=== PATIENT | female | born 1965 | race Caucasian/White ===

== ENCOUNTER 2016-10-08 13:45 | Emergency (ER) | payer MEDICARE, OTHER ==
[2016-10-08 14:00] VITALS: RESP 18
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
--- NOTE | 2016-10-08 15:36 | XR ---
EXAMINATION TYPE: XR ankle complete LT DATE OF EXAM: 10/08/2016 3:30 PM COMPARISON: NONE HISTORY: Pain Three views of the ankle demonstrate the ankle mortise to be intact and symmetric. The joint spaces are preserved. The osseous structures are intact. Soft tissue edema noted. Calcaneal spur noted. IMPRESSION: 1. No definite acute fracture or dislocation, if symptoms persist follow-up study in 7 to 10 days wou ld be suggested.
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
--- NOTE | 2016-10-08 15:39 | XR ---
EXAMINATION TYPE: XR foot complete LT DATE OF EXAM: 10/08/2016 3:30 PM COMPARISON: NONE HISTORY: Pain The osseous structures are intact and the joint spaces are preserved. There is no acute fracture or dislocation. Calcaneal spur noted. IMPRESSION: 1. No acute fracture or dislocation. If symptoms persist, follow-up exam in 7 to 10 days could be ob tained.
[2016-10-08 16:13] VITALS: BP 137/86; PULSE 83; TEMP 97.9
== END 2016-10-08 16:13 | disposition home or self-care (01) ==
LOC: EC 13:45
DX: F07.81 Postconcussional syndrome (principal); S49.92XA Unspecified injury of left shoulder and upper arm, initial encounter; M79.672 Pain in left foot; M54.2 Cervicalgia; V49.59XA Passenger injured in collision with other motor vehicles in traffic accident, initial encounter; I10 Essential (primary) hypertension; M19.90 Unspecified osteoarthritis, unspecified site; F41.9 Anxiety disorder, unspecified; F32.9 Major depressive disorder, single episode, unspecified; F17.200 Nicotine dependence, unspecified, uncomplicated; Z79.82 Long term (current) use of aspirin; Z79.899 Other long term (current) drug therapy
CPT/HCPCS: 70450; 72125; 99284

== ENCOUNTER → 2016-11-11 | Outpatient (CLI) | payer MEDICARE, OTHER ==
--- NOTE | 2016-11-11 15:35 | MR ---
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 TECHNOLOGIST HISTORY AT TIME OF EXAM: Spondylosis with radiculopathy, cervical re COMPARISON: Previous study dated 11/13/2011. TECHNIQUE: Multiplanar, multiecho imaging of the cervical spine was obtained without contrast on a 1 .5 nisha magnet. FINDINGS: Prevertebral soft tissues are normal. Vertebral body height and alignment are maintained. Atlantoaxial relationships are normal. There is a normal craniocervical junction. Cord signal is normal. At C2-C3, no definite abnormality is seen. At C3-C4, there is a tiny central disc displacement mildly deforming the thecal sac without cord cont act. The intervertebral foramina are well maintained. The facet and uncovertebral joints are normal. At C4-C5, there is disc space loss and hypertrophic spondylosis. There is a broad-based disc protrusi on slightly eccentric towards the right deforming the thecal sac with cord contact and mild compressi on. The facet and uncovertebral joints are unremarkable. At C5-C6, there is disc space loss and disc desiccation. There is hypertrophic spondylosis. There is a broad-based disc protrusion deforming the thecal sac with cord contact and mild compression. There is mild to moderate, bilateral intervertebral foraminal narrowing. The facet and uncovertebral joints are unremarkable. At C6-C7, the intervertebral foramina are well maintained. There is a right paracentral disc displace ment mildly deforming the thecal sac without cord contact. The facet and uncovertebral joints are unr emarkable. At C7-T1, no abnormality is seen. IMPRESSION: 1. BROAD-BASED DISC PROTRUSION, C4-5 AND C5-6 DEFORMING THE THECAL SAC WITH CORD CONTACT AND COMPRESS ION. 2. BILATERAL INTERVERTEBRAL FORAMINAL NARROWING, C5-6.
== END | disposition home or self-care (01) ==
LOC: RADMRIMAIN 14:30
PROVIDERS: ATTEND Family Medicine
DX: M99.71 Connective tissue and disc stenosis of intervertebral foramina of cervical region (principal); M50.121 Cervical disc disorder at C4-C5 level with radiculopathy
CPT/HCPCS: 72141

== ENCOUNTER → 2019-05-19 | Outpatient (CLI) | payer MEDICARE, OTHER ==
--- NOTE | 2019-05-19 08:51 | MR ---
EXAMINATION TYPE: MR lumbar spine wo con DATE OF EXAM: 05/19/2019 COMPARISON: 09/06/2014 plain films HISTORY: Spondylopathy, chronic pain, facet joint arthropathy CONTRAST: 0 mL intravenous . TECHNIQUE: Multiplanar, multisequence images of the lumbar spine were acquired. FINDINGS: L5-S1: Mild disc bulge is present with anterior thecal sac contact. Facet hypertrophy with ligamentum flavum laxity has some left posterior lateral thecal sac compression. No spinal canal stenosis. Th ere is moderate right foraminal stenosis due to disc bulge. This may have contact with the exiting ne rve root within the spinal canal. L4-L5: There is central subligamentous disc herniation with mild to moderate anterior thecal sac comp ression. No AP spinal canal stenosis is present. Diffuse disc bulge is present extending into the for amen bilaterally. Posterior lateral thecal sac compression from facet hypertrophy and ligamentum flav um laxity is contributing to some spinal canal narrowing through the L4-5 level. Moderate right seamus inal narrowing is present due to disc bulge. L3-L4: Broad-based disc bulge is present with moderate anterior thecal sac flattening. No AP spinal c anal stenosis present. Some facet hypertrophy with ligamentum flavum laxity has left posterior latera l thecal sac compression. Neural foramen are patent. L2-L3: Minimal disc bulge has anterior thecal sac contact. No spinal canal stenosis. No foraminal s tenosis. L1-L2: No significant disc bulge or disc herniation. No spinal canal stenosis. No foraminal stenosi s. Neural foramen are patent.. T12-L1: There is a left paracentral disc herniation with mild anterior thecal sac compression. No cor d contact is evident. No spinal canal stenosis or neural foraminal stenosis is present. IMPRESSION: 1. Subligamentous disc herniation with mild anterior thecal sac compression left paracentral region T 12-L1. 2. Central subligamentous disc herniation with mild to moderate anterior thecal sac compression L4-5. This is contributing to spinal canal narrowing through the L4-5 level in conjunction with the facet hypertrophy and ligamentum flavum laxity. 3. Right foraminal narrowing due to disc bulging L5-S1, L4-5. 4. Additional mild disc bulging present discussed above with anterior thecal sac compression without stenosis.
== END | disposition home or self-care (01) ==
LOC: RADMRIMAIN 07:46
PROVIDERS: ATTEND Family Medicine
DX: M48.061 Spinal stenosis, lumbar region without neurogenic claudication (principal); M51.26 Other intervertebral disc displacement, lumbar region; G89.4 Chronic pain syndrome
CPT/HCPCS: 72148

== ENCOUNTER 2022-03-05 08:48 | Emergency (ER) | payer MEDICARE ==
[2022-03-05 08:53] VITALS: TEMP 97.7
[2022-03-05] MEDS ORDERED: SODIUM CHLORIDE 0.9% 500 ML 500 ML IV STA (09:19)
[2022-03-05] MEDS ORDERED: MORPHINE SULFATE 4 MG/ML SYRINGE IV STA (09:19)
--- NOTE | 2022-03-05 09:57 | ED ---
General Adult HPI - General Chief complaint: Abdominal Pain Stated complaint: abd pain, diarrhea Time Seen by Provider: 03/05/22 08:57 Source: patient, family, RN notes reviewed, old records reviewed Mode of arrival: ambulatory Limitations: no limitations - History of Present Illness Initial comments: 56-year-old female presenting for evaluation of crampy abdominal pain and diarrhea. Patient believes that she may have some food poisoning. She ate a chicken sandwich yesterday evening and developed symptoms several hours after this. She has a lower bilateral abdominal pain which is worse just prior to episodes of diarrhea. She did note some minimal blood in her stool. There's been no vomiting. She has had nausea. - Related Data Home Medications Medication Instructions Recorded Confirmed Levothyroxine Sodium [Synthroid] 100 mcg PO DAILY 12/20/20 12/20/20 Metoprolol Tartrate [Lopressor] 50 mg PO BID 12/20/20 12/20/20 oxyCODONE HCL/ACETAMINOPHEN 1 tab PO TID PRN 12/20/20 12/20/20 [Percocet 7.5-325 mg] Levothyroxine Sodium [Synthroid] 100 mcg PO DAILY 03/05/22 03/05/22 Metoprolol Tartrate [Lopressor] 50 mg PO BID 03/05/22 03/05/22 Nystatin 100,000Unit/gm Cream 1 applic TOPICAL BID PRN 03/05/22 03/05/22 [Mycostatin Cream] oxyCODONE-APAP 7.5-325MG [Percocet 1 tab PO Q8H 03/05/22 03/05/22 7.5-325 mg] Allergies Allergy/AdvReac Type Severity Reaction Status Date / Time nitrofurantoin Allergy Dyspnea Verified 03/05/22 10:10 [From Macrobid] blueberry AdvReac Unknown Verified 03/05/22 10:10 Milk Containing Products AdvReac Unknown Verified 03/05/22 10:10 Review of Systems ROS Statement: Those systems with pertinent positive or pertinent negative responses have been documented in the HPI. ROS Other: All systems not noted in ROS Statement are negative. Past Medical History Past Medical History: Hypertension, Osteoarthritis (OA) Additional Past Medical History / Comment(s): herniated disc/chronic back pain History of Any Multi-Drug Resistant Organisms: None Reported Past Surgical History: Appendectomy, Section Past Psychological History: Anxiety, Depression Past Alcohol Use History: None Reported Past Drug Use History: None Reported General Exam Limitations: no limitations General appearance: alert, in no apparent distress Head exam: Present: atraumatic, normocephalic Eye exam: Present: normal appearance, PERRL ENT exam: Present: normal exam Neck exam: Present: normal inspection. Absent: tenderness, meningismus Respiratory exam: Present: normal lung sounds bilaterally. Absent: respiratory distress, wheezes Cardiovascular Exam: Present: regular rate, normal rhythm GI/Abdominal exam: Present: soft. Absent: distended, tenderness, guarding, rebound Extremities exam: Present: normal inspection, normal capillary refill. Absent: pedal edema, calf tenderness Neurological exam: Present: alert, oriented X3, CN II-XII intact. Absent: motor sensory deficit Psychiatric exam: Present: normal affect, normal mood Skin exam: Present: warm, dry, intact. Absent: cyanosis, diaphoretic Course Vital Signs 03/05/22 03/05/22 08:49 11:30 Temperature 97.7 F Pulse Rate 84 68 Respiratory 18 16 Rate Blood Pressure 161/91 142/72 O2 Sat by Pulse 99 99 Oximetry - Reevaluation(s) Reevaluation #1: 03/05/22 11:39 Patient reevaluated, feeling better, no further diarrhea. Medical Decision Making - Medical Decision Making 56-year-old female with diarrheal illness with some trace blood. Patient well- appearing stable vitals. She does have a leukocytosis of 19 which is being followed by her primary care physician. She has a stable hemoglobin, normal el ectrolytes. She feels better after symptomatic treatment and is given strict return parameters. Patient agreeable and eager for discharge. - Lab Data Result diagrams: 03/05/22 09:26 03/05/22 09:26 Lab Results 03/05/22 03/05/22 03/05/22 Range/Units 09:26 09:26 09:26 WBC 19.3 H (3.8-10.6) k/uL RBC 5.31 (3.80-5.40) m/uL Hgb 15.2 (11.4-16.0) gm/dL Hct 50.0 H (34.0-46.0) % MCV 94.2 (80.0-100.0) fL MCH 28.7 (25.0-35.0) pg MCHC 30.4 L (31.0-37.0) g/dL RDW 12.6 (11.5-15.5) % Plt Count 341 (150-450) k/uL MPV 7.3 PT 10.0 (9.0-12.0) sec INR 0.9 (<1.2) APTT 25.9 (22.0-30.0) sec Sodium 139 (137-145) mmol/L Potassium 5.1 (3.5-5.1) mmol/L Chloride 107 (98-107) mmol/L Carbon Dioxide 22 (22-30) mmol/L Anion Gap 10 mmol/L BUN 19 H (7-17) mg/dL Creatinine 0.93 (0.52-1.04) mg/dL Est GFR (CKD-EPI)AfAm 80 (>60 ml/min/1.73 sqM) Est GFR (CKD-EPI)NonAf 69 (>60 ml/min/1.73 sqM) Glucose 116 H (74-99) mg/dL Plasma Lactic Acid Ken (0.7-2.0) mmol/L Calcium 9.9 (8.4-10.2) mg/dL Total Bilirubin 0.7 (0.2-1.3) mg/dL AST 30 (14-36) U/L ALT 19 (4-34) U/L Alkaline Phosphatase 69 (38-126) U/L Total Protein 7.8 (6.3-8.2) g/dL Albumin 4.3 (3.5-5.0) g/dL Amylase 60 (30-110) U/L Lipase 86 (23-300) U/L 03/05/22 Range/Units 09:26 WBC (3.8-10.6) k/uL RBC (3.80-5.40) m/uL Hgb (11.4-16.0) gm/dL Hct (34.0-46.0) % MCV (80.0-100.0) fL MCH (25.0-35.0) pg MCHC (31.0-37.0) g/dL RDW (11.5-15.5) % Plt Count (150-450) k/uL MPV PT (9.0-12.0) sec INR (<1.2) APTT (22.0-30.0) sec Sodium (137-145) mmol/L Potassium (3.5-5.1) mmol/L Chloride (98-107) mmol/L Carbon Dioxide (22-30) mmol/L Anion Gap mmol/L BUN (7-17) mg/dL Creatinine (0.52-1.04) mg/dL Est GFR (CKD-EPI)AfAm (>60 ml/min/1.73 sqM) Est GFR (CKD-EPI)NonAf (>60 ml/min/1.73 sqM) Glucose (74-99) mg/dL Plasma Lactic Acid Ken 1.6 (0.7-2.0) mmol/L Calcium (8.4-10.2) mg/dL Total Bilirubin (0.2-1.3) mg/dL AST (14-36) U/L ALT (4-34) U/L Alkaline Phosphatase (38-126) U/L Total Protein (6.3-8.2) g/dL Albumin (3.5-5.0) g/dL Amylase (30-110) U/L Lipase (23-300) U/L Disposition Clinical Impression: Abdominal pain, Diarrhea Disposition: HOME SELF-CARE Condition: Good Instructions (If sedation given, give patient instructions): Abdominal Pain (ED), Acute Diarrhea (ED) Is patient prescribed a controlled substance at d/c from ED?: No Referrals: Susana Benson MD [Primary Care Provider] - 1-2 days Time of Disposition: 11:39
[2022-03-05 09:58] LABS: Albumin 4.3 g/dL (3.5-5.0); Calcium 9.9 mg/dL (8.4-10.2); Total Bilirubin 0.7 mg/dL (0.2-1.3); Total Protein 7.8 g/dL (6.3-8.2)
[2022-03-05 10:01] LABS: Potassium 5.1 mmol/L (3.5-5.1)
[2022-03-05 10:28] LABS: INR 0.9 (<1.2); Partial Thromboplastin Time 25.9 sec (22.0-30.0)
[2022-03-05 10:38] LABS: Basophils # (A) 0.1 k/uL (0-0.2); Basophils % (A) 1 %; Eosinophils # (A) 0.1 k/uL (0-0.7); Eosinophils % (A) 1 %; HGB 15.2 gm/dL (11.4-16.0); Lymphocytes # (A) 2.8 k/uL (1.0-4.8); Lymphocytes % (A) 15 %; MCH 28.7 pg (25.0-35.0); MCHC 30.4 g/dL (31.0-37.0); MCV 94.2 fL (80.0-100.0); Mean Platelet Volume 7.3; Monocytes # (A) 0.8 k/uL (0-1.0); Monocytes % (A) 4 %; Neutrophils # (A) 15.2 k/uL (1.3-7.7); Neutrophils % (A) 79 %; Platelet Count 341 k/uL (150-450); RBC 5.31 m/uL (3.80-5.40); RDW 12.6 % (11.5-15.5); WBC 19.3 k/uL (3.8-10.6)
[2022-03-05 11:31] VITALS: BP 142/72; PULSE 68; RESP 16
== END 2022-03-05 11:53 | disposition home or self-care (01) ==
LOC: EC 08:48
DX: R19.7 Diarrhea, unspecified (principal); R10.9 Unspecified abdominal pain; D72.829 Elevated white blood cell count, unspecified; I10 Essential (primary) hypertension; Z88.3 Allergy status to other anti-infective agents; Z91.018 Allergy to other foods; Z91.011 Allergy to milk products; Z79.899 Other long term (current) drug therapy
CPT/HCPCS: 36415; 80053; 82150; 83605; 83690; 85025; 85610; 85730; 99284; 96374; 96361; J2270

== ENCOUNTER → 2022-08-26 | Outpatient (CLI) | payer MEDICARE ==
--- NOTE | 2022-08-26 10:04 | MR ---
EXAMINATION TYPE: MR lumbar spine wo con DATE OF EXAM: 08/26/2022 COMPARISON: MRI lumbar spine May 19, 2019 HISTORY: LOW BACK PAIN GOING DOWN BOTH LEGS for 3 months. TECHNIQUE: Multiplanar, multisequence imaging of the lumbar spine is performed without IV contrast. FINDINGS: Sagittal images of the lumbar spine show vertebral body heights to remain satisfactory. Sta ble grade 1 retrolisthesis L4 on L5. Multilevel disc desiccation redemonstrated. Moderate disc space narrowing L4-L5 level with mild to moderate anterior spurring is again seen. The conus medullaris is normal in position and signal ending superior L1 level. The bone marrow signal intensity is within normal limits. Axial images at T12-L1 level redemonstrates left paracentral disc protrusion mildly effacing anterola teral thecal sac. No significant change from prior. Axial images at L1-L2 level remain within normal limits. Axial images at L2-L3 level demonstrate mild to moderate broad-based disc bulge effacing the anterior thecal sac. Patent bilateral neural foramina. No significant change from prior. Axial images at L3-L4 level show new large right paracentral disc extrusion with inferior extension u p to 1.2 cm below the superior L4 margin sagittal image 9. There is mild facet arthropathy and ligame ntum flavum hypertrophy on current study greater on the left more prominent from prior study effacing left lateral thecal sac. Mild right-sided anterior inferior neural foraminal narrowing current study . Axial images at L4-L5 level shows spondylolisthesis with moderate facet arthropathy and ligamentum fl avum hypertrophy more prominent from prior effacing the posterolateral thecal sac. There is moderate broad-based posterior disc protrusion effacing anterior thecal sac. There is mild bilateral neural fo raminal narrowing. More prominent spinal canal effacement noted from prior. Axial images at L5-S1 level redemonstrate moderate right greater than left facet arthropathy and liga mentum flavum hypertrophy. There is mild/moderate broad-based disc bulge without spinal canal is pres erved. There is mild/moderate right-sided anterior neural foraminal narrowing due to lateral disc pro trusion component similar to prior. The paraspinal muscle bulk is maintained. There is cortical thinning and thin-walled cysts scattered throughout both kidneys consistent with product of chronic medical renal disease. IMPRESSION: Multilevel degenerative changes as detailed above with significant new findings noted L3 -L4 level and more prominent degenerative changes noted L4-L5 level.
== END | disposition home or self-care (01) ==
LOC: RADMRIMAIN 09:05
PROVIDERS: ATTEND Psychiatry & Neurology Neurology
DX: M47.817 Spondylosis without myelopathy or radiculopathy, lumbosacral region (principal); M99.74 Connective tissue and disc stenosis of intervertebral foramina of sacral region; M51.27 Other intervertebral disc displacement, lumbosacral region; M43.16 Spondylolisthesis, lumbar region
CPT/HCPCS: 72148

== ENCOUNTER 2024-07-13 15:55 | Emergency (ER) | payer MEDICARE ==
[2024-07-13 16:03] VITALS: RESP 18; TEMP 98.4
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
[2024-07-13] MEDS: IBUPROFEN 600 MG TAB PO STA (17:54)
[2024-07-13 18:00] VITALS: BP 155/84; PULSE 75
== END 2024-07-13 18:10 | disposition home or self-care (01) ==
LOC: EC 15:55
CPT/HCPCS: 70450; 72125; 99284